=== PATIENT | female | born 1945 | race Caucasian/White ===

== ENCOUNTER 2016-08-23 12:20 | Inpatient (IN) | payer MEDICARE, OTHER ==
[~2016-08-23] VITALS: Ht 170.2 cm; Wt 77.1 kg
[2016-08-23 13:11] LABS: HEMOGLOBIN 13.2 gm/dl (12.3-15.3); RED BLOOD COUNT 4.25 M/UL (4.00-5.10); WHITE BLOOD COUNT 6.8 K/UL (4.5-11.0)
[2016-08-23 13:33] LABS: BUN/CREATININE RATIO 23 (0-10)
[2016-08-23] MEDS ORDERED: FLONASE 0.05% N16 GM INH (23:08)
[2016-08-23] MEDS ORDERED: IPRAT-ALBUT 0.5-3 ML INH (23:09)
[2016-08-23] MEDS ORDERED: XOPENEX HFA15 GM INH (23:10)
[2016-08-23] MEDS ORDERED: PRILOSEC OTC20 MG PO (23:10)
[2016-08-25 06:26] LABS: BUN/CREATININE RATIO 40 (0-10)
--- NOTE | 2016-08-26 06:45 | NUR ---
just spoke with diana in lab and she has never received any blood for cardiac enzymes for this patient. when i placed order, i called lab and told them i had just ordered cardiac enz stat
--- NOTE | 2016-08-26 07:45 | NUR ---
PATIENT REPORTS OF HAVING CHEST PAIN WITH PM NURSE NO CHEST PAIN AT THIS TIME. INSTRUCTED TO REPORT NURSE AND MD IF CHEST PAIN OCCUR AND VERB UNDERSTANDING
[2016-08-27 06:39] LABS: HEMOGLOBIN 13.1 gm/dl (12.3-15.3); RED BLOOD COUNT 4.22 M/UL (4.00-5.10); WHITE BLOOD COUNT 12.1 K/UL (4.5-11.0)
[2016-08-27 07:02] LABS: BUN/CREATININE RATIO 53 (0-10)
[2016-08-27] MEDS ORDERED: MEDROL DOSEPAK 24 MG PO (19:53)
[2016-08-27] MEDS ORDERED: SYMBICORT 160-1 INHA INH (19:53)
[2016-08-27] MEDS ORDERED: IPRAT-ALBUT 0.5-3 ML INH (19:56)
[2016-08-27] MEDS ORDERED: ASPIRIN EC81 MG PO (19:59)
[2016-12-17] MEDS ORDERED: BREO ELLIPTA 11 EACH INH (07:23)
[2016-12-17] MEDS ORDERED: LASIX20 MG PO (07:24)
[2016-12-17] MEDS ORDERED: POTASSIUM CHLO10 ME2 PO (07:25)
[2016-12-17] MEDS ORDERED: INCRUSE ELLI62.5 MCG INH (07:26)
[2016-12-23] MEDS ORDERED: SPIRIVA18 MCG INH (10:48)
[2016-12-23] MEDS ORDERED: ALPRAZOLAM0.5 MG PO (10:49)
[2016-12-23] MEDS ORDERED: LEVAQUIN500 MG PO (10:50)
[2016-12-23] MEDS ORDERED: DULERA 100 MCG8.8 GM INH (10:51)
[2016-12-23] MEDS ORDERED: PREDNISONE 20 M20 MG PO (10:52)
== END 2016-08-27 20:40 | disposition home or self-care (01) | DRG 189 ==
LOC: ER1 12:20 → ZEROF 17:11 → M/S 17:11
PROVIDERS: Emergency Medicine; Family Medicine; ADMIT Internal Medicine Infectious Disease
DX: J96.21 Acute and chronic respiratory failure with hypoxia (principal); J44.1 Chronic obstructive pulmonary disease with (acute) exacerbation; R07.9 Chest pain, unspecified; F41.9 Anxiety disorder, unspecified; F17.210 Nicotine dependence, cigarettes, uncomplicated; K21.9 Gastro-esophageal reflux disease without esophagitis; Z79.51 Long term (current) use of inhaled steroids; Z88.5 Allergy status to narcotic agent; Z79.899 Other long term (current) drug therapy
CPT/HCPCS: 36415; 36600; 71010; 78452; 80048; 80053; 81001; 82550; 82553; 82803; 83690; 83880; 84484; 85025; 85027; 85379; 85610; 85730; 87081; 87880; 93005; 93017; 94640; 94664; 96374; 99285; A9502; J1650; J2785; J2920; J2930; J7509

== ENCOUNTER → 2016-09-22 | Outpatient (CLI) | payer MEDICARE, OTHER ==
[~2016-09-22] MED LIST: ALPRAZOLAM0.5 MG PO; ASPIRIN EC81 MG PO; BREO ELLIPTA 11 EACH INH; DULERA 100 MCG8.8 GM INH; FLONASE 0.05% N16 GM INH; INCRUSE ELLI62.5 MCG INH; IPRAT-ALBUT 0.5-3 ML INH; LASIX20 MG PO; LEVAQUIN500 MG PO; MEDROL DOSEPAK 24 MG PO; POTASSIUM CHLO10 ME2 PO; PREDNISONE 20 M20 MG PO; PRILOSEC OTC20 MG PO; SPIRIVA18 MCG INH; SYMBICORT 160-1 INHA INH; XOPENEX HFA15 GM INH
[2016-09-22 13:19] LABS: HEMOGLOBIN 12.7 gm/dl (12.3-15.3); RED BLOOD COUNT 4.12 M/UL (4.00-5.10); WHITE BLOOD COUNT 6.4 K/UL (4.5-11.0)
[2016-09-22 13:45] LABS: BUN/CREATININE RATIO 27 (0-10)
== END ==
LOC: LAB 12:37
PROVIDERS: Family Medicine
DX: R25.2 Cramp and spasm (principal); J44.9 Chronic obstructive pulmonary disease, unspecified; E78.5 Hyperlipidemia, unspecified
CPT/HCPCS: 36415; 80053; 80061; 83735; 85025

== ENCOUNTER → 2016-10-16 | Outpatient (CLI) | payer MEDICARE, OTHER | LOC: LAB 17:23 | DX: R31.29 Other microscopic hematuria (principal) | CPT/HCPCS: 81001 ==